=== PATIENT | male | born 1960 | race Hispanic/Latino ===

== ENCOUNTER 2017-05-13 14:58 | Emergency (ER) | payer OTHER ==
[~2017-05-13] VITALS: Ht 157.5 cm; Wt 92.5 kg
[~2017-05-13 14:58] MED LIST: NAPROSYN500 MG PO; NORCO 5/3251 TABLET PO; PROTONIX40 MG PO
[2017-05-13 17:00] VITALS: BP 173/94
[2017-05-13] MEDS ORDERED: COLACE100 MG PO (17:24)
== END 2017-05-13 18:10 | disposition home or self-care (01) ==
LOC: EME 14:58
DX: K40.90 Unilateral inguinal hernia, without obstruction or gangrene, not specified as recurrent (principal)
CPT/HCPCS: 99281; 99283

== ENCOUNTER 2017-11-22 13:19 | Emergency (ER) | payer SELFPAY ==
[~2017-11-22] VITALS: Ht 170.2 cm; Wt 100.4 kg
[~2017-11-22 13:19] MED LIST changes: +COLACE100 MG PO
[2017-11-22 14:22] LABS: APPEARANCE CLEAR ((CLEAR)); BILIRUBIN NEGATIVE; BLOOD NEGATIVE; COLOR COLORLESS ((YELLOW)); GLUCOSE (STRIP) NEGATIVE; KETONES NEGATIVE; LEUKOCYTES NEGATIVE; NITRITE NEGATIVE; PROTEIN (STRIP) NEGATIVE; SPECIFIC GRAVITY 1.004 (1.000-1.030); UROBILINOGEN 0.2 MG/DL (0.2-1.0)
[2017-11-22 14:24] LABS: HEMOGLOBIN 14.8 G/DL (12.5-16.6); MCH 31.4 PG (29.0-34.0); MCHC 36.1 G/DL (30.0-36.0); MCV 86.9 FL (86-99); PLATELET COUNT 263 K/uL (156-360); RBC DIS.WIDTH-CV 12.3 % (11.8-14.6); RBC DIS.WIDTH-SD 39.3 % (39-53); RED BLOOD COUNT 4.72 M/uL (4.00-5.50)
[2017-11-22 14:38] LABS: CHLORIDE 105 mEq/L (99-109); POTASSIUM 3.8 mEq/L (3.7-5.4); SODIUM 140 mEq/L (136-147)
[2017-11-22 14:40] LABS: GLUCOSE 101 mg/dL (70-99)
[2017-11-22 14:44] LABS: GFR ESTIMATE (CALCULATED) > 59 mL/min/ (58.99-99999)
[2017-11-22 14:45] LABS: UREA NITROGEN (BUN) 9 mg/dL (9-23)
[2017-11-22] MEDS ORDERED: NORCO 5/3251 TABLET PO (16:39)
[2017-11-22 16:50] VITALS: BP 178/100
== END 2017-11-22 16:50 | disposition home or self-care (01) ==
LOC: EME 13:19
PROVIDERS: Physician Assistant
DX: K40.90 Unilateral inguinal hernia, without obstruction or gangrene, not specified as recurrent (principal); Z87.19 Personal history of other diseases of the digestive system
CPT/HCPCS: 76882; 80048; 81003; 85027; 99281; 99284; J2270